=== PATIENT | male | born 1945 | race Two or more races ===

== ENCOUNTER 2018-07-10 08:00 | Inpatient (IN) | payer OTHER ==
[~2018-07-10] VITALS: Ht 172.7 cm; Wt 74.8 kg
[2018-07-10] MEDS ORDERED: AMLODIPINE BESY10 MG PO (14:51)
[2018-07-10] MEDS ORDERED: NEURONTIN800 MG PO (14:51)
[2018-07-10] MEDS ORDERED: PENTOXIFYLLINE400 MG PO (14:51)
[2018-07-10] MEDS ORDERED: LISINOPRIL20 MG PO (14:52)
== END 2018-07-19 16:55 | DRG 470 ==
LOC: O/R 07-17 06:00 → SURG 07-17 06:00 → SURH 07-17 08:00 → SURG 07-17 19:05
PROVIDERS: ADMIT Orthopaedic Surgery
PROC: 0SRD0J9 Replacement of Left Knee Joint with Synthetic Substitute, Cemented, Open Approach (ICD-10-PCS; principal; 2018-07-17 10:00)
DX: M17.12 Unilateral primary osteoarthritis, left knee (principal); D62 Acute posthemorrhagic anemia; I10 Essential (primary) hypertension